=== PATIENT | male | born 1995 | race African-American/Black ===

== ENCOUNTER 2019-02-26 10:33 | Emergency (ER) | payer MEDICAID, OTHER ==
[~2019-02-26] VITALS: Ht 182.9 cm; Wt 62.8 kg
[2019-02-26 10:35] VITALS: BP 106/68
== END 2019-02-26 11:12 | disposition home or self-care (01) ==
LOC: ED 11:00
DX: S05.42XD Penetrating wound of orbit with or without foreign body, left eye, subsequent encounter (principal); F17.200 Nicotine dependence, unspecified, uncomplicated; X58.XXXD Exposure to other specified factors, subsequent encounter
CPT/HCPCS: 99281